=== PATIENT | male | born 1935 | race Caucasian/White ===

== ENCOUNTER → 2016-11-12 | Outpatient (CLI) | payer OTHER ==
[~2016-11-12] MED LIST: IOPAMIDOL (ISOVUE 370) 75 ML BTL IV ONE
--- NOTE | 2016-11-12 15:52 | CT ---
CT angio abdomen and pelvis. Clinical indication: Follow up EV repair. Comparison November 23, 2015. Technique: 1.5 mm contiguous helical axial scanning through the abdomen and pelvis after the uneventf ul administration of IV contrast, timed in the arterial phase. Patient received 90 mL of Isovue-370 w ithout complication. Routine reconstructions are performed in the coronal and sagittal planes. This w as not performed as a multiphasic scan and I have discussed this with the technologist. Dose reductio n technique was performed. FINDINGS: The lung bases are clear. Some linear scarring is present in the lingula. The liver and gal lbladder are unremarkable. Exophytic low density in the right lobe of the liver segment 6 is -11 Houn sfield units most likely a cyst. The pancreas, spleen, adrenals, and kidneys are unremarkable. Scatt ered cysts are present in the kidneys. There is diverticulosis without evidence of diverticulitis. Very mild proximal narrowing is present at the celiac axis. The SMA is widely patent. Renal arteries are widely patent. The stent is in good position up to the edge of the renal arteries. 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 The di stal landing zone in the distal common iliac artery appears well sealed on the right. The hypogastric is patent. The external iliac artery is patent. Landing zone in the upper left common iliac artery appears well sealed. The left external iliac and hypogastric arteries are patent. IMPRESSION: Interval decrease in the sac size. Although this was not timed to evaluate for endoleak I suspect there is no significant endoleak given the decrease in size and prior examination without ev idence of endoleak.
== END ==
LOC: FIMAGING 12:47
DX: Z48.812 Encounter for surgical aftercare following surgery on the circulatory system (principal)
CPT/HCPCS: 74174; Q9967

== ENCOUNTER 2016-12-06 21:30 | Emergency (ER) | payer OTHER ==
--- NOTE | 2016-12-06 21:35 | UCPHY ---
H & P Patient Type: New HPI/ROS: HPI CHIEF COMPLAINT: Cough, congestion x5 days HISTORY OF PRESENT ILLNESS: This patient is a 81-year-old male, significant past medical history for hypertension, coronary artery disease, thyroid disease , GERD, chronic cough, insomnia, presents to the urgent care with 5 days of progressively worsening cough he tells me he has been coughing is been getting worse. Patient tells me he has been having a progressive worsening cough for the past 5 days it got worse today. He was seen by his Ear Nose and Throat doctor and placed on doxycycline. He has been taking this medication. Started having some faint wheezing tonight a thought maybe was the antibiotic killing the bacteria causing the wheezing noise. Denies fever. Here in the Urgent Care he appears well nontoxic no acute distress he has no respiratory distress symptoms. He does have a very loud bronchitic sounding cough. Faint wheezing on exam. Past Medical History: Hypertension, coronary disease, thyroid disease, GERD, chronic all, insomnia Past Surgical History: 1 stent in heart, bilateral inguinal stents unclear if these are fem-pop bypass Social History: Denies use of drugs alcohol tobacco products Family History: Noncontributory ROS REVIEW OF SYSTEMS: A comprehensive 10 point review of systems is otherwise negative aside from elements mentioned in the history of present illness. Exam Constitutional appears well nontoxic triage nursing summary reviewed, vital signs reviewed, awake/alert. (See not hypoxic, afebrile) Eyes normal conjunctivae and sclera, EOMI, PERRLA. HENT normal inspection, atraumatic, moist mucus membranes, no epistaxis, neck supple/ no meningismus, no raccoon eyes. Respiratory no respiratory distress, faint wheezing bilaterally, bronchitic loud sound and cough , normal breath sounds, no respiratory distress Cardiovascular rate normal, regular rhythm, no murmur, no edema, distal pulses normal. Gastrointestinal soft, non-tender, no rebound, no guarding, normal bowel sounds, no distension, no pulsatile mass. Genitourinary no CVA tenderness. Musculoskeletal no midline vertebral tenderness, full range of motion, no calf swelling, no tenderness of extremities, no meningismus, good pulses, neurovascularly intact. Skin pink, warm, & dry, no rash, skin atraumatic. Neurologic awake, alert and oriented x 3, AAOx3, moves all 4 extremities equally, motor intact, sensory intact, CN II-XII intact, normal cerebellar, normal vision, normal speech. Psychiatric normal mood/affect. Heme/Lymph/Immune no lymphadenopathy. Differential Diagnosis: Includes but is not limited to in a particular order pneumonia, bronchitis, reactive airway disease, viral syndrome, upper respiratory tract infection Medical Decision Making: this patient had a two view chest x-ray will be given a DuoNeb breathing treatment here and 60 mg prednisone. Reason for chest x-ray is rule out pneumonia. Re-evaluation: ED x-ray chest two view: Negative for acute cardiopulmonary disease. Specifically no pneumonia appreciated. No pneumothorax. 2208: Re-evaluation at this time this patient is feeling much better. Received a DuoNeb breathing treatment. This made a great improvement in his cough and wheezing. He is no longer wheezing is good air movement, pulse ox normal 95% on room air. Does wear oxygen at night for sleep apnea I do recommend any wears this tonight 2 L. I will give him a take-home albuterol inhaler, prescription for prednisone, guaifenesin, he artery is on doxycycline now 1 him to continue this, Upton for cough suppression. He understands return to the emergency room or urgent care if he develops any worsening symptoms includes further respiratory symptoms, fever, vomiting or questions or concerns he understands. At time of discharge she appears well nontoxic not coughing, good breath sounds bilaterally, room air saturation 95%. No distress. Source: Patient - Personal History Tetanus Vaccine Date: 2005 - Family History Significant Family History: No pertinent family hx Constitutional: Initial Vital Signs Temperature (C) 36.6 C 12/06/16 21:45 Heart Rate 95 12/06/16 21:45 Respiratory Rate 18 12/06/16 21:45 Blood Pressure 123/84 H 12/06/16 21:45 O2 Sat (%) 93 12/06/16 21:45 O2 Delivery Mode Room Air Allergies/Adverse Reactions: amoxicillin [Amoxicillin] Allergy (Verified 08/17/12 10:13) Hives niacin [From Niaspan Extended-Release] Allergy (Verified 08/17/12 10:13) Itching onions Allergy (Unknown, Uncoded 08/17/12 10:13) Home Medications: Medication Instructions Recorded Pantoprazole Sodium [Protonix 40mg 40 mg PO DAILY 04/22/12 (*)] Rosuvastatin Calcium [Crestor 20mg 20 mg PO DAILY 04/22/12 (*)] Aspirin [Aspirin 81mg (OTC)] 81 mg PO DAILY 04/26/12 CHOLECALCIFEROL [VITAMIN D] 1,000 08/17/12 Nebivolol HCl [Bystolic 5 mg (RX)] 08/17/12 Doxycycline 100 mg Prepack#2 12/06/16 Guaifenesin [Guaifenesin ER] 600 mg PO BID #14 tab.er.12h 12/06/16 Hydrocodone Bit/Homatropine 12/06/16 Hydrocodone/APAP 5/325 [Upton 1 - 2 tab PO Q4H PRN #10 tab 12/06/16 5/325] Levothyroxine 12/06/16 Lexapro 10 MG 12/06/16 predniSONE 60 mg PO DAILY #15 tab 12/06/16 traZODone 12/06/16 Medical Decision Making - Data Points Medications Given: Discontinued Medications Acetaminophen/Hydrocodone Bitart ([place] 5/325) 1 tab PO EDNOW ONE Stop: 12/06/16 21:37 Last Admin: 12/06/16 21:53 Dose: Not Given Albuterol/Ipratropium (Duoneb) 3 ml IH EDNOW ONE Stop: 12/06/16 21:37 Last Admin: 12/06/16 21:54 Dose: 3 ml Prednisone (Prednisone) 60 mg PO EDNOW ONE Stop: 12/06/16 21:37 Last Admin: 12/06/16 21:54 Dose: 60 mg Departure - Departure Disposition: Home, Routine, Self-Care Clinical Impression: Acute bronchitis Qualifiers: Bronchitis organism: unspecified organism Qualifier Code: (J20.9) Acute bronchitis, unspecified Condition: Good Instructions: Acute Bronchitis (ED) Additional Instructions: 1. Drink lots of fluids stay well-hydrated 2. Return to the emergency room urgent care if he develops any worsening symptoms includes worsening shortness of breath, high fever, vomiting 3. Take your prescriptions as prescribed please complete her entire course of doxycycline. Referrals: Robert Caruso MD [Primary Care Provider] - As per Instructions Prescriptions: Guaifenesin [Guaifenesin ER] 600 mg PO BID #14 tab.er.12h Hydrocodone/APAP 5/325 [Upton 5/325] 1 - 2 tab PO Q4H PRN #10 tab PRN Reason: Pain, Moderate predniSONE 60 mg PO DAILY #15 tab - PQRS PQRS Measurement: n/a
[2016-12-06] MEDS ORDERED: predniSONE 20 MG TAB PO ONE (21:36)
[2016-12-06] MEDS ORDERED: IPRATROPIUM/ALBUTEROL 3 ML DEYVIAL IH ONE (21:36)
[2016-12-06] MEDS ORDERED: HYDROCODONE/APAP 5/325 TAB PO ONE (21:36)
[2016-12-06 21:47] VITALS: BP 123/84; PULSE 95; RESP 18; TEMP 97.8; O2SAT 93
--- NOTE | 2016-12-06 22:01 | DX ---
Chest 2 view, PA and lateral. History: Cough and congestion. Comparison: February 2010 Findings: Heart size is within normal limits. Pulmonary vascularity is normal. The lungs are clear of acute consolidation. Mild peribronchial cuffing is seen bilaterally. No evidence for pleural effusio n. Mild degenerative changes seen in the thoracic spine. Impression: Mild bronchitis. No other findings for acute cardiopulmonary abnormality.
[2016-12-06] MEDS ORDERED: ALBUTEROL INH PREPACK MDI TAKEHOME ONE (22:09)
== END 2016-12-06 22:31 | disposition home or self-care (01) ==
LOC: CED 21:30
DX: J20.9 Acute bronchitis, unspecified (principal); I10 Essential (primary) hypertension; I25.10 Atherosclerotic heart disease of native coronary artery without angina pectoris; E07.9 Disorder of thyroid, unspecified; K21.9 Gastro-esophageal reflux disease without esophagitis; F51.04 Psychophysiologic insomnia
CPT/HCPCS: 71020; G0463; 99204-PO

== ENCOUNTER → 2017-02-03 | Outpatient (CLI) | payer OTHER | LOC: BHFA 13:00 | PROVIDERS: ATTEND Internal Medicine Cardiovascular Disease | DX: I71.4 Abdominal aortic aneurysm, without rupture (principal); I25.10 Atherosclerotic heart disease of native coronary artery without angina pectoris; E78.5 Hyperlipidemia, unspecified ==

== ENCOUNTER → 2017-09-10 | Outpatient (CLI) | payer OTHER | LOC: CIMAGING 11:59 | PROVIDERS: ATTEND Internal Medicine | DX: R05 Cough (principal) | CPT/HCPCS: 71020-PO; 82607-90; 85025-PO; G0463-PO ==